=== PATIENT | female | born 1945 | race Two or more races ===

== ENCOUNTER 2017-08-24 23:00 | Inpatient (IN) | payer MEDICAID, OTHER ==
[~2017-08-24] VITALS: Ht 167.6 cm; Wt 59.0 kg
[2017-08-24] MEDS ORDERED: PRADAXA (23:44)
[2017-08-25] MEDS ORDERED: CLINDAMYCIN PHOSPHATE IV 900 MG in IV DEXTROSE 5% 100 ML IV ONE ×2
[2017-08-25] MEDS ORDERED: VANCOMYCIN IV 1,000 MG in IV DEXTROSE 5% 250 ML IV ONE ×2
[2017-08-25] MEDS ORDERED: IV NORMAL SALINE 1000 ML BAG IV ONE
--- NOTE | 2017-08-25 00:10 | NUR ---
Pt ambulated to room with steady gait. Pt c/o right sided facial swelling, pain and redness for approx 2-3 days. Pt also c/o pain to gum line on the right side. Pt denies any shortness of breath or difficulty breathing. Resp even and unlabored. Airway patent. Pt seen by Dr. Bedolla, awaiting further orders. Son at bedside to translate
[2017-08-25] MEDS ORDERED: SERT50TA PO (00:24)
[2017-08-25] MEDS ORDERED: ZOLP10TA6 PO (00:24)
[2017-08-25] MEDS ORDERED: CLOB15CR4 TP (00:24)
[2017-08-25] MEDS ORDERED: OMEP20CA10 PO (00:24)
[2017-08-25] MEDS ORDERED: DABI150C PO (00:24)
[2017-08-25] MEDS ORDERED: ATOR20TA PO (00:24)
[2017-08-25] MEDS ORDERED: CHOL100045 PO (00:24)
[2017-08-25 00:29] LABS: BASOPHILS % (AUTO) 0.4 % (0.0-2.0); EOSINOPHILS # (AUTO) 0.1 K/uL (0.0-0.7); EOSINOPHILS % (AUTO) 1.3 % (0.0-7.0); HEMOGLOBIN 12.5 g/dL (10.9-14.3); LYMPHOCYTES # (AUTO) 1.4 K/uL (20.0-40.0); LYMPHOCYTES % (AUTO) 22.7 % (20.5-51.5); MEAN CORPUSCULAR HEMOGLOBIN 29.5 uug (24.7-32.8); MEAN CORPUSCULAR HGB CONC 34 g/dL (32.3-35.6); MEAN CORPUSCULAR VOLUME 87.3 fL (75.5-95.3); MONOCYTES # (AUTO) 0.8 K/uL (2.0-10.0); MONOCYTES % (AUTO) 13.6 % (0.0-11.0); NEUTROPHILS # (AUTO) 3.7 K/uL (1.8-8.9); PLATELET COUNT (AUTO) 231 K/uL (179-408); RED BLOOD CELL COUNT(AUTO) 4.25 MIL/uL (3.63-4.92)
[2017-08-25 00:40] LABS: CARBON DIOXIDE 23 mmol/L (21-32); CHLORIDE 106 mmol/L (98-107); CREATININE 0.8 mg/dL (0.6-1.3); GLUCOSE 106 mg/dL (74-106); POTASSIUM 3.7 mmol/L (3.5-5.1); UREA NITROGEN, BLOOD 13 mg/dL (7-18)
[2017-08-25 00:46] LABS: ALANINE AMINOTRANSFERASE 16 U/L (14-59); ALKALINE PHOSPHATASE 79 U/L (50-136); ASPARTATE AMINOTRANSFERASE 28 U/L (15-37); BILIRUBIN,DIRECT 0.1 mg/dL (0.0-0.2); BILIRUBIN,TOTAL 0.4 mg/dL (0.2-1.0); TOTAL PROTEIN, SERUM 7.2 g/dL (6.4-8.2)
--- NOTE | 2017-08-25 00:50 | NUR ---
Labs drawn and sent. IV established. First ABT infusion started, will monitor for any adverse reactions. Fluid bolus infusing freely to gravity. Pt resting in position of comfort for self.
[2017-08-25] MEDS ORDERED: VANCOMYCIN IV 200 ML ONE (00:55)
[2017-08-25] MEDS ORDERED: CLINDAMYCIN PHOSPHATE 900 MG/6 ML VIAL ONE (00:55)
--- NOTE | 2017-08-25 01:38 | NUR ---
Fluid bolus completed. First ABT infusion completed, no adverse reactions noted. Second ABT infusion started, will monitor for any adverse reactions. Pt resting in position of comfort for self. No complaints at this time. Son at bedside. Admission pending.
--- NOTE | 2017-08-25 03:18 | NUR ---
Second ABT infusion completed, no adverse reactions noted. Pt ambulated to br with steady gait. Pt c/o 4-5/10 pain but sts its tolerable and declines need for medication.
--- NOTE | 2017-08-25 03:25 | NUR ---
Report called to CRISPIN Burciaga. Preparing to transfer pt to the floor.
[2017-08-25 04:33] VITALS: BP 131/80
[2017-08-25] MEDS ORDERED: ACETAMINOPHEN 325 MG TABLET PO PRN (05:15)
[2017-08-25] MEDS ORDERED: ONDANSETRON 4 MG/2 ML VIAL IV PRN (05:15)
[2017-08-25] MEDS ORDERED: MAGNESIUM HYDROXIDE 30 ML LIQUID UDC PO PRN (05:15)
[2017-08-25] MEDS: PANTOPRAZOLE SODIUM 40 MG TABLET.DR PO SCH (06:19)
[2017-08-25] MEDS: HYDROCODONE/APAP 5-325MG TABLET PO PRN ×2 (06:20→13:13)
[2017-08-25] MEDS ORDERED: HYDROCODONE/APAP 5-325MG TABLET ONE (06:29)
[2017-08-25] MEDS ORDERED: PANTOPRAZOLE SODIUM 40 MG TABLET.DR PO ONE (06:30)
[2017-08-25] MEDS ORDERED: CLINDAMYCIN PHOSPHATE 600 MG/4 ML VIAL ONE (06:43)
[2017-08-25] MEDS: CLINDAMYCIN PHOSPHATE IV 600 MG in IV DEXTROSE 5% 100 ML IV SCH ×3 (06:52→21:51)
--- NOTE | 2017-08-25 06:54 | NUR ---
admitted a 71 year old Senegalese speaking from ER with admitting diagnosis of facial cellulitis. Right side of face reddenned and swollen and painful. assessment done. Son in with patient. left forearm heplock gauge #20 flushed and patent IV antibiotic Clindamycin 600mg IV given with no ill effects. Medicated with 1 tab of [place] as ordered for pain on right side face with 5/10 scale. Needs attended. Voiding well.
--- NOTE | 2017-08-25 07:00 | NUR ---
PT IS LAYING IN BED COMFORTABLY, NO S/S OF RESPIRATORY DISTRESS NOTED. ALL SAFETY NEEDS ARE MET. IV INTACT/PATENT. NO PAIN NOTED. PT IS AXO X 3, COOPERATIVE, WILL CONTINUE TO MONITOR.
[2017-08-25 07:08] VITALS: BP 101/71
[2017-08-25] MEDS ORDERED: ZOLPIDEM 5 MG TABLET PO PRN (07:30)
[2017-08-25] MEDS: SERTRALINE HCL 50 MG TABLET PO SCH (09:00)
[2017-08-25] MEDS: ACIDOPHILUS/BULGARICUS CHEW TAB PO SCH ×2 (09:41→20:12)
[2017-08-25] MEDS: CHOLECALCIFEROL 1,000 UNIT TABLET PO SCH (09:41)
[2017-08-25 15:00] VITALS: BP 96/62
[2017-08-25 15:10] LABS: *BILIRUBIN,URIN NEGATIVE (NEGATIVE); *BLOOD, URINE 1+ (NEGATIVE); *CLARITY,URINE SLIGHTLY CLOUDY (CLEAR); *COLOR,URINE YELLOW (YELLOW); *KETONES,URINE NEGATIVE (NEGATIVE); *PROTEIN,URINE NEGATIVE (NEGATIVE); *UROBILINOGEN,URINE 0.2 E.U./dl (NORMAL); LEUKOCYTE ESTERASE ,URINE NEGATIVE (NEGATIVE); NITRITE, URINE NEGATIVE (NEGATIVE); UGLUCOSE NEGATIVE (NEGATIVE)
[2017-08-25 15:36] LABS: BACTERIA,URINE NONE SEEN /HPF (NONE SEEN); SQUAMOUS EPITHELIAL CELL,UR NONE SEEN /HPF (NONE SEEN); WBC,URINE 0-3 /HPF (0-3)
[2017-08-25 17:29] VITALS: BP 100/65
--- NOTE | 2017-08-25 19:02 | NUR ---
PT IS LAYING IN BED COMFORTABLY, NO S/S OF RESPIRATORY DISTRESS NOTED. ALL SAFETY NEEDS ARE MET. IV INTACT/PATENT. NO PAIN NOTED. PT IS AXO X 3, COOPERATIVE.
[2017-08-25 19:30] VITALS: BP 100/53
[2017-08-25] MEDS: ATORVASTATIN 20 MG TABLET PO SCH (20:12)
--- NOTE | 2017-08-25 20:30 | NUR ---
Received pt resting comfortably in bed and talking to someone on the phone. Croatian speaking but able to make needs known by giving cues. AAO x4. Room air. No acute distress noted. C/o of mild pain on the right cheek. Will follow through with interventions. IV site patent and intact. Safety measures maintained. Call light within reach. Will continue to monitor.
--- NOTE | 2017-08-26 05:33 | NUR ---
Pt slept comfortably t/o the night. Vital signs stable. Meds given as prescribed. Receiving IV antibiotic. All needs attended to promptly. Will endorse to day shift RN. Continue to monitor.
[2017-08-26] MEDS: CLINDAMYCIN PHOSPHATE IV 600 MG in IV DEXTROSE 5% 100 ML IV SCH ×3 (06:01→22:04)
[2017-08-26] MEDS: PANTOPRAZOLE SODIUM 40 MG TABLET.DR PO SCH (06:01)
[2017-08-26 07:05] VITALS: BP 133/83
[2017-08-26] MEDS: CHOLECALCIFEROL 1,000 UNIT TABLET PO SCH (08:16)
[2017-08-26] MEDS: SERTRALINE HCL 50 MG TABLET PO SCH (08:16)
[2017-08-26] MEDS: ACIDOPHILUS/BULGARICUS CHEW TAB PO SCH ×2 (08:16→20:01)
--- NOTE | 2017-08-26 16:50 | NUR ---
Telephone report give to jacob Hernández. All questions answered patient will be transfer ambulating. Pt. was just examine by Dr. Jain.
[2017-08-26 17:20] VITALS: BP 124/73
--- NOTE | 2017-08-26 17:20 | NUR ---
Received patient from [facility]U, admitted to room 222, A and O x 4, Gibraltarian speaking, can only understand little Wolof. Patient is ambulatory. Son and at bedside. With IV access on left hand #20, intact and patent. No acute distress noted.Vital signs are stable. Right cheek slightly swollen. No complaints of pain at this time. All comfort measures provided. Safety measures initiated. Will continue to monitor closely.
[2017-08-26] MEDS: ATORVASTATIN 20 MG TABLET PO SCH (20:02)
[2017-08-26 20:14] VITALS: BP 137/77
--- NOTE | 2017-08-26 20:52 | NUR ---
Patient in bed, awake alert & oriented no SOB denies chest pain. Right facial swelling noted. Afebrile. Routine night meds administered p.o, patient tolerated.
--- NOTE | 2017-08-26 22:21 | NUR ---
received patient still awake, Burundian speaking onle. No s/s of pain/discomforts presented. IVPB ATB infusing at this time on LH. No s/s of infiltration noted. Anticipate needs.
[2017-08-27 04:49] VITALS: BP 129/78
--- NOTE | 2017-08-27 05:12 | NUR ---
Slept well. No complaint presented all night. All needs attended and met. No significant event reported all night. Continue current plan of care.
[2017-08-27] MEDS: PANTOPRAZOLE SODIUM 40 MG TABLET.DR PO SCH (06:05)
[2017-08-27] MEDS: CLINDAMYCIN PHOSPHATE IV 600 MG in IV DEXTROSE 5% 100 ML IV SCH ×2 (06:05→14:03)
--- NOTE | 2017-08-27 07:30 | NUR ---
Awake, alert, oriented x 4, Kyrgyz speaking. Denies discomfort. Right face with diminished redness and swelling
[2017-08-27] MEDS: ACIDOPHILUS/BULGARICUS CHEW TAB PO SCH (09:15)
[2017-08-27] MEDS: CHOLECALCIFEROL 1,000 UNIT TABLET PO SCH (09:16)
[2017-08-27] MEDS: SERTRALINE HCL 50 MG TABLET PO SCH (09:16)
[2017-08-27 11:53] VITALS: BP 105/62
[2017-08-27] MEDS ORDERED: AMOX1TAB15 PO (15:40)
[2017-08-27 16:31] VITALS: BP 120/72
--- NOTE | 2017-08-27 17:00 | NUR ---
With discharge or alvaro to home. Saline lock removed. DC instruction given to patient and niece, verbalized understanding. Went home per ambulatory in fair condition, not in distress, afebrile
== END 2017-08-27 17:22 | disposition home or self-care (01) | DRG 383 ==
LOC: ER 23:02 → MEDSURG1 08-25 03:59 → MED 08-26 17:22
PROVIDERS: ADMIT Internal Medicine; ATTEND Internal Medicine
DX: L03.211 Cellulitis of face (principal); D68.59 Other primary thrombophilia; I48.91 Unspecified atrial fibrillation; I10 Essential (primary) hypertension; E78.5 Hyperlipidemia, unspecified
CPT/HCPCS: 36415; 71010; 83605; 85025; 87040; 87086; 93005; A4663; J3370; J3490; J7030; J7060

== ENCOUNTER 2018-07-05 11:26 | Emergency (ER) | payer MEDICAID ==
[~2018-07-05] VITALS: Ht 170.2 cm; Wt 61.2 kg
[~2018-07-05 11:26] MED LIST: AMOX1TAB15 PO; ATOR20TA PO; CHOL100045 PO; CLOB15CR4 TP; DABI150C PO; OMEP20CA10 PO; SERT50TA PO; ZOLP10TA6 PO
--- NOTE | 2018-07-05 12:36 | NUR ---
Patient discharged to home in stable conditon. Written and verbal after care instructions given. Patient verbalizes understanding of instructions.pt walks in steady gait accompanied by son
== END 2018-07-05 12:36 | disposition home or self-care (01) ==
LOC: ER 11:26
DX: S49.91XA Unspecified injury of right shoulder and upper arm, initial encounter (principal); I48.91 Unspecified atrial fibrillation; E78.00 Pure hypercholesterolemia, unspecified; W01.0XXA Fall on same level from slipping, tripping and stumbling without subsequent striking against object, initial encounter; Y93.89 Activity, other specified; Y92.89 Other specified places as the place of occurrence of the external cause; Y99.8 Other external cause status
CPT/HCPCS: 29105; 73030; 99284; A4663

== ENCOUNTER 2019-07-25 10:11 | Inpatient (IN) | payer MEDICAID, MEDICARE ==
[~2019-07-25] VITALS: Ht 162.6 cm; Wt 74.8 kg
[~2019-07-25 10:11] MED LIST changes: -OMEP20CA10 PO; +OMEP20CA11 PO
[2019-07-25] MEDS ORDERED: FAMO20TA8 PO (10:37)
[2019-07-25] MEDS ORDERED: MECLIZINE HCL 25 MG TABLET ONE ×2 (11:10→11:14)
[2019-07-25] MEDS ORDERED: ACETAMINOPHEN ES 500 MG TABLET ONE ×2 (11:10→11:14)
[2019-07-25] MEDS ORDERED: ACETAMINOPHEN ES 500 MG TABLET PO ONE (11:15)
[2019-07-25] MEDS ORDERED: MECLIZINE HCL 25 MG TABLET PO ONE (11:15)
[2019-07-25 11:16] LABS: *BILIRUBIN,URIN NEGATIVE (NEGATIVE); *BLOOD, URINE NEGATIVE (NEGATIVE); *CLARITY,URINE CLEAR (CLEAR); *COLOR,URINE YELLOW (YELLOW); *KETONES,URINE NEGATIVE (NEGATIVE); *UROBILINOGEN,URINE 0.2 E.U./dl (NORMAL); LEUKOCYTE ESTERASE ,URINE NEGATIVE (NEGATIVE); NITRITE, URINE NEGATIVE (NEGATIVE); PH,URINE 8.5 (5.0-8.0); UGLUCOSE NEGATIVE (NEGATIVE)
[2019-07-25 11:24] LABS: BASOPHILS % (AUTO) 0.5 % (0.0-2.0); EOSINOPHILS # (AUTO) 0.1 K/uL (0.0-0.7); EOSINOPHILS % (AUTO) 1.3 % (0.0-7.0); HEMATOCRIT 42.7 % (31.2-41.9); HEMOGLOBIN 13.9 g/dL (10.9-14.3); LYMPHOCYTES # (AUTO) 1.3 K/uL (20.0-40.0); LYMPHOCYTES % (AUTO) 31.5 % (20.5-51.5); MEAN CORPUSCULAR HEMOGLOBIN 28.4 uug (24.7-32.8); MEAN CORPUSCULAR HGB CONC 33 g/dL (32.3-35.6); MEAN CORPUSCULAR VOLUME 87.2 fL (75.5-95.3); MONOCYTES # (AUTO) 0.4 K/uL (2.0-10.0); MONOCYTES % (AUTO) 9.8 % (0.0-11.0); NEUTROPHILS # (AUTO) 2.4 K/uL (1.8-8.9); NEUTROPHILS % (AUTO) 56.9 % (38.5-71.5); PLATELET COUNT (AUTO) 257 K/uL (179-408); RED BLOOD CELL COUNT(AUTO) 4.89 MIL/uL (3.63-4.92); WHITE BLOOD COUNT (AUTO) 4.2 K/uL (3.8-11.8)
[2019-07-25 11:48] LABS: CREATININE 0.8 mg/dL (0.6-1.3); POTASSIUM 3.9 mmol/L (3.5-5.1)
[2019-07-25 11:54] LABS: BILIRUBIN,DIRECT 0.1 mg/dL (0.0-0.2); BILIRUBIN,TOTAL 0.7 mg/dL (0.2-1.0); TOTAL PROTEIN, SERUM 7.9 g/dL (6.4-8.2)
[2019-07-25] MEDS ORDERED: SWABABLE VALVE TRANSFER SET EA MC ONE (12:10)
[2019-07-25] MEDS ORDERED: IV NORMAL SALINE 250 ML IV ONE (12:10)
[2019-07-25] MEDS ORDERED: IOHEXOL 300MG/ML 100 ML INFUS..BTL ONE (12:10)
--- NOTE | 2019-07-25 14:25 | NUR ---
Pt resting in gurney with NAD noted. Per ER admitting pt's insurance has authorized for the pt to be admitted here. Called tele floor for bed assignment.
--- NOTE | 2019-07-25 15:10 | NUR ---
pending admitting papers@this time
[2019-07-25 15:50] VITALS: BP 129/80
[2019-07-25] MEDS ORDERED: MAGNESIUM HYDROXIDE 30 ML LIQUID UDC PO PRN (19:15)
[2019-07-25] MEDS ORDERED: ACETAMINOPHEN 325 MG TABLET PO PRN (19:15)
[2019-07-25] MEDS ORDERED: ONDANSETRON 4 MG/2 ML VIAL IV PRN (19:15)
--- NOTE | 2019-07-25 19:16 | NUR ---
Pt received from ER. Mariah, Cypriot speaking, able to make needs known. Right AC IV flushed and patent, heplock. Pt seen by Dr. Rush, awaiting new orders. Skin intact. Pt denies pain and no acute distress evident. Full code and regular diet ordered. Pt tolerated dinner consumption well. VSS . Call light and personal belongings placed within reach. All safety and comfort concerns addressed. Will continue to monitor and endorse to on coming car shifter.
[2019-07-25 20:00] VITALS: BP 97/59
[2019-07-25] MEDS: ATORVASTATIN 20 MG TABLET PO SCH (21:37)
[2019-07-25] MEDS: DOCUSATE SODIUM 100 MG CAPSULE PO SCH (21:38)
[2019-07-26 00:05] VITALS: BP 115/72
[2019-07-26] MEDS: ZOLPIDEM 5 MG TABLET PO PRN ×2 (01:36→22:06)
[2019-07-26 04:05] VITALS: BP 107/55
--- NOTE | 2019-07-26 06:25 | NUR ---
TEXTED DR. ROOT FOR MRI APPROVAL.
[2019-07-26 06:33] LABS: BASOPHILS % (AUTO) 0.7 % (0.0-2.0); EOSINOPHILS # (AUTO) 0.1 K/uL (0.0-0.7); EOSINOPHILS % (AUTO) 3.4 % (0.0-7.0); HEMATOCRIT 40.8 % (31.2-41.9); HEMOGLOBIN 13.3 g/dL (10.9-14.3); LYMPHOCYTES # (AUTO) 1.4 K/uL (20.0-40.0); LYMPHOCYTES % (AUTO) 36.5 % (20.5-51.5); MEAN CORPUSCULAR HEMOGLOBIN 28.8 uug (24.7-32.8); MEAN CORPUSCULAR HGB CONC 33 g/dL (32.3-35.6); MEAN CORPUSCULAR VOLUME 87.9 fL (75.5-95.3); MONOCYTES # (AUTO) 0.5 K/uL (2.0-10.0); MONOCYTES % (AUTO) 12.3 % (0.0-11.0); NEUTROPHILS # (AUTO) 1.8 K/uL (1.8-8.9); NEUTROPHILS % (AUTO) 47.1 % (38.5-71.5); PLATELET COUNT (AUTO) 229 K/uL (179-408); RED BLOOD CELL COUNT(AUTO) 4.64 MIL/uL (3.63-4.92); WHITE BLOOD COUNT (AUTO) 3.8 K/uL (3.8-11.8)
--- NOTE | 2019-07-26 06:49 | NUR ---
patient slept well last night after requesting for zolpidem for insomnia and tylenol for her headache. no acute changes, patient is in not acute distress at this time. c/o of on and off headache at times. but in stable condition. telemetry monitor on reading afib at 74 heart rate.
[2019-07-26 06:54] LABS: THYROID STIMULATING HORMONE 2.339 mIU/mL (0.358-3.740)
--- NOTE | 2019-07-26 07:30 | NUR ---
Received patient in bed with no SOB noted at this time, alert and and orientedx3, able to make needs known, IV intact and patent. bed in low position and. Safety and comfort provided at all time. Call light within reached.
[2019-07-26 07:38] LABS: BILIRUBIN,TOTAL 0.4 mg/dL (0.2-1.0); CREATININE 0.8 mg/dL (0.6-1.3); MAGNESIUM 2.3 mg/dL (1.8-2.4); PHOSPHOROUS 4.1 mg/dL (2.5-4.9); POTASSIUM 4.1 mmol/L (3.5-5.1); TOTAL PROTEIN, SERUM 6.9 g/dL (6.4-8.2)
[2019-07-26] MEDS ORDERED: DABIGATRAN ETEXILATE MESYLATE 150 MG CAPSULE PO SCH (09:00)
[2019-07-26] MEDS ORDERED: DABIGATRAN ETEXILATE MESYLATE 150 MG CAPSULE PO ONE (09:00)
[2019-07-26] MEDS: CHOLECALCIFEROL 1,000 UNIT TABLET PO SCH (09:18)
[2019-07-26] MEDS: FAMOTIDINE 20 MG TABLET PO SCH (09:18)
[2019-07-26] MEDS: DABIGATRAN ETEXILATE MESYLATE 150 MG CAPSULE PO SCH ×2 (09:19→16:33)
[2019-07-26 12:00] VITALS: BP 105/68
[2019-07-26 15:18] VITALS: BP 105/70
--- NOTE | 2019-07-26 16:11 | NUR ---
DR. JAY JAY LOAIZA FOR THE PATIENT.
--- NOTE | 2019-07-26 18:44 | NUR ---
Patient in bed with HOB elevated. Argentine speaking. D/C from tele. No SOB noted at this time, alert and and oriented x4, able to make needs known, IV intact and patent . No c/o pain at this time. Bed in low position. Safety and comfort provided at all time. Call light within reach.
[2019-07-26] MEDS: DOCUSATE SODIUM 100 MG CAPSULE PO SCH (20:10)
[2019-07-26] MEDS: ATORVASTATIN 20 MG TABLET PO SCH (20:10)
[2019-07-26 20:14] VITALS: BP 103/72
[2019-07-27 06:20] VITALS: BP 100/66
--- NOTE | 2019-07-27 07:53 | NUR ---
Received pt. awake sitting in chair. Pt. is alert oriented x4 Guyanese speaking. Pt. denies pain/ discomfort. Pt. appears with no acute distress/ difficulty breathing. Pt. has IV in L AC 22 gauge intact patent saline lock. Pt. to go to MRI of brain/ C Spine and T spine without contrast in [place] today at 10 AM. Pt. is aware of plan of care and agrees. Safety measures in place. Call light within reach. Will continue to monitor pt.
[2019-07-27] MEDS: CHOLECALCIFEROL 1,000 UNIT TABLET PO SCH (09:20)
[2019-07-27] MEDS: FAMOTIDINE 20 MG TABLET PO SCH (09:20)
[2019-07-27] MEDS: DABIGATRAN ETEXILATE MESYLATE 150 MG CAPSULE PO SCH (09:21)
--- NOTE | 2019-07-27 10:26 | NUR ---
Pt. left to MRI in [place]. Pt. stable. Pt. picked up by ambulance. ticket to ride completed. checklist completed by PM nurse.
--- NOTE | 2019-07-27 12:00 | NUR ---
Received pt. back from MRI via ambulance. Pt. denies pain/ discomfort. Pt. in no acute distress. Safety measures in place. call light within reach. will continue to monitor pt
[2019-07-27 12:29] VITALS: BP 110/79
[2019-07-27 15:57] VITALS: BP 107/68
== END 2019-07-27 16:00 | disposition home or self-care (01) | DRG 201 ==
LOC: ER 10:11 → TELE3 15:08 → MEDSURG3 07-26 16:10
PROVIDERS: ADMIT Internal Medicine; ATTEND Internal Medicine
DX: I49.9 Cardiac arrhythmia, unspecified (principal); M48.02 Spinal stenosis, cervical region; I48.20 Chronic atrial fibrillation, unspecified; R55 Syncope and collapse; E78.5 Hyperlipidemia, unspecified; K59.00 Constipation, unspecified; N20.0 Calculus of kidney; Z87.11 Personal history of peptic ulcer disease; Z87.442 Personal history of urinary calculi; M50.31 Other cervical disc degeneration, high cervical region; K64.9 Unspecified hemorrhoids; M54.6 Pain in thoracic spine; M99.51 Intervertebral disc stenosis of neural canal of cervical region; R51 Headache
CPT/HCPCS: 36415; 70030-TC; 70450; 70551; 71260; 72141; 83735; 84100; 84443; 85025; 85730; 93005; 93307; 93880; A4663; A9150; G0378; J7050; J8597; Q9967

== ENCOUNTER 2019-08-09 19:05 | Emergency (ER) | payer MEDICARE, MEDICAID ==
[~2019-08-09] VITALS: Ht 165.1 cm; Wt 72.6 kg
[~2019-08-09 19:05] MED LIST changes: -AMOX1TAB15 PO; -CLOB15CR4 TP; +FAMO20TA8 PO; -OMEP20CA11 PO; -SERT50TA PO
--- NOTE | 2019-08-09 19:34 | NUR ---
MD AT BEDSIDE FOR HX AND PHYSICAL PT C/O DIZZINESS AND DISORIENTATION INTERMITTENT FOR THE PAST 3WKS SPEAKS [place] CITIZEN, SON IS AT BEDSIDE TO INTERPRET ABLE TO SPEAK CLEAR AND COMPLETE SENTENCES DENIES NVD STATES GETTING WORSE OVER THE PAST 2DAYS PLEASANT, CALM AND ABLE TO FOLLOW COMMANDS POSITION OF COMFORT: HIGH ALONZO'S TO SEATED SIDERAILSX2 UP BED AT LOWEST POSITION MONITORED ACCORDINGLY
[2019-08-09] MEDS ORDERED: MECLIZINE HCL 25 MG TABLET PO ONE (19:45)
[2019-08-09] MEDS ORDERED: MECLIZINE HCL 25 MG TABLET ONE (19:46)
--- NOTE | 2019-08-09 20:35 | NUR ---
PT STATES SLIGHT IMPROVEMENT AFTER PO MEDS Patient discharged to home in stable conditon. Written and verbal after care instructions given. Patient verbalizes understanding of instructions. AMBULATORY W/ STABLE GAIT ASSISTED BY SON ALL BELONGINGS W/ PT
[2019-08-09 20:50] VITALS: BP 140/80
== END 2019-08-09 20:40 | disposition home or self-care (01) ==
LOC: ER 19:05
DX: H81.10 Benign paroxysmal vertigo, unspecified ear (principal); I48.91 Unspecified atrial fibrillation; K21.9 Gastro-esophageal reflux disease without esophagitis; E78.00 Pure hypercholesterolemia, unspecified; Z79.899 Other long term (current) drug therapy
CPT/HCPCS: 93005; A4663; J8597

== ENCOUNTER 2020-10-26 18:44 | Emergency (ER) | payer MEDICARE, OTHER ==
[~2020-10-26] VITALS: Ht 167.6 cm; Wt 72.6 kg
--- NOTE | 2020-10-26 18:54 | NUR ---
[email or web address], medical screening exam in progress
--- NOTE | 2020-10-26 19:00 | NUR ---
Patient resting in room, states pain of left knee and right arm. Gaurding right arm.
--- NOTE | 2020-10-26 19:08 | NUR ---
Radiology contacted and notified about x-ray of patient.
--- NOTE | 2020-10-26 19:12 | NUR ---
X-ray TECH in room with patient.
[2020-10-26] MEDS: HYDROCODONE/APAP 5-325MG TABLET PO ONE (20:00)
[2020-10-26] MEDS ORDERED: HYDROCODONE/APAP 5-325MG TABLET ONE (20:05)
[2020-10-26] MEDS ORDERED: HYDR-3972 PO (20:18)
[2020-10-26 20:30] VITALS: BP 127/81
--- NOTE | 2020-10-26 20:30 | NUR ---
Patient discharged to home in stable condition. Written and verbal after care instructions given. Patient verbalizes understanding of instructions. Stressed follow up or return to ER for worsening s/s. Patient ambulates without difficulty, received prescription, and took all belongings.
== END 2020-10-26 20:30 | disposition home or self-care (01) ==
LOC: ER 18:46
DX: S50.01XA Contusion of right elbow, initial encounter (principal); S80.02XA Contusion of left knee, initial encounter; W01.0XXA Fall on same level from slipping, tripping and stumbling without subsequent striking against object, initial encounter; Y92.89 Other specified places as the place of occurrence of the external cause; K21.9 Gastro-esophageal reflux disease without esophagitis; I48.91 Unspecified atrial fibrillation
CPT/HCPCS: 73080; A4663